=== PATIENT | male | born 1960 | race Caucasian/White ===

== ENCOUNTER 2021-02-24 17:25 | Inpatient (IN) | payer BC ==
[2021-02-24] MEDS ORDERED: Ondansetron 4 MG/2 ML SDV IVPUSH ONE (17:53)
[2021-02-24] MEDS ORDERED: HYDROmorphone 0.5 MG/0.5 ML Syringe IVPUSH ONE ×3 (17:53→19:49)
[2021-02-24] MEDS ORDERED: Sodium Chloride 0.9% 1,000 ML IV SCH (18:00)
--- NOTE | 2021-02-24 18:14 | EDM.PDOC ---
ED HPI GENERAL MEDICAL PROBLEM - General Chief Complaint: Chest Pain Stated Complaint: CHEST PAIN/STOMACH PAIN Time Seen by Provider: 02/24/21 18:00 Source of Information: Reports: Patient, Family History Limitations: Reports: No Limitations - History of Present Illness INITIAL COMMENTS - FREE TEXT/NARRATIVE: 60-year-old male with a past history of cholelithiasis, presents with right upper quadrant pain radiating to his back for the past 2 hours. Mild nausea but no vomiting, no fevers or chills, some pain does radiate up into the substernal area of the chest. He is very uncomfortable. No fevers or chills. No urinary symptoms. Onset: Sudden Duration: Hour(s): (2-1/2 hours ago) Location: Reports: Abdomen (Upper abdomen and right upper quadrant) Associated Symptoms: Reports: Chest Pain, Other (Mild nausea). Denies: Fever/Chills, Headaches, Shortness of Breath Epigastric Pain Score (Numeric/FACES): 10 - Related Data Allergies Allergy/AdvReac Type Severity Reaction Status Date / Time No Known Allergies Allergy Verified 02/24/21 18:06 Home Meds: Home Meds NK [No Known Home Meds] 02/24/21 [History] Past Medical History Oncologic (Cancer) History: Reports: Prostate - Past Surgical History Male Surgical History: Reports: Prostatectomy ED ROS GENERAL - Review of Systems Review Of Systems: See Below Constitutional: Reports: Malaise. Denies: Fever, Chills HEENT: Reports: No Symptoms Respiratory: Reports: No Symptoms Cardiovascular: Reports: Chest Pain. Denies: Palpitations GI/Abdominal: Reports: Abdominal Pain, Nausea. Denies: Diarrhea, Vomiting : Reports: No Symptoms Musculoskeletal: Reports: No Symptoms Skin: Reports: No Symptoms Neurological: Reports: No Symptoms Psychiatric: Reports: No Symptoms ED EXAM, GENERAL - Physical Exam Exam: See Below Exam Limited By: No Limitations General Appearance: Alert, Mild Distress, Other (Fairly uncomfortable, difficulty finding comfortable position) Eye Exam: Bilateral Eye: Normal Inspection (No jaundice) Head: Atraumatic Respiratory/Chest: No Respiratory Distress, Lungs Clear Cardiovascular: Regular Rate, Rhythm, No Murmur GI/Abdominal: Soft, Tender (Very tender to palpation across the upper abdomen, guarding in the right upper quadrant but no significant rebound) Extremities: Normal Inspection. No: Pedal Edema Neurological: Alert, Oriented Psychiatric: Anxious Skin Exam: Warm, Dry #1 Interpretation EKG Date: 02/24/21 Rhythm: NSR EKG Interpretation Comments: No comparisons available Course - Vital Signs Last Recorded V/S: Last Vital Signs Temp 97.0 F 02/24/21 17:38 Pulse 51 L 02/24/21 20:10 Resp 9 L 02/24/21 20:10 BP 138/59 L 02/24/21 20:10 Pulse Ox 96 02/24/21 20:10 - Orders/Labs/Meds Orders: Active Orders 24 hr Category Date Time Status Sodium Chloride 0.9% [Normal Saline] 1,000 ml Med 02/24/21 18:00 Active IV ASDIRECTED EKG 12 Lead [EK] Routine Ther 02/24/21 17:53 Ordered Medication Orders Diphenhydramine HCl (Diphenhydramine 25 Mg Cap) 25 mg PO Q4H PRN PRN Reason: Itching Diphenhydramine HCl (Diphenhydramine 50 Mg/Ml Sdv) 25 mg IVPUSH Q4H PRN PRN Reason: Itching Diphenhydramine HCl (Diphenhydramine 50 Mg/Ml Sdv) 50 mg IVPUSH Q4H PRN PRN Reason: Itching Fentanyl (Fentanyl 100 Mcg/2 Ml Sdv) 10 mcg IVPUSH Q1H PRN PRN Reason: Pain (mild 1-3) Fentanyl (Fentanyl 100 Mcg/2 Ml Sdv) 20 mcg IVPUSH Q1H PRN PRN Reason: Pain (moderate 4-6) Fentanyl (Fentanyl 100 Mcg/2 Ml Sdv) 30 mcg IVPUSH Q1H PRN PRN Reason: Pain (severe 7-10) Sodium Chloride (Normal Saline) 1,000 mls @ 500 mls/hr IV ASDIRECTED GINNY Last Admin: 02/24/21 18:12 Dose: 500 mls/hr Documented by: LALO Promethazine HCl 12.5 mg/ (Sodium Chloride) 50.5 mls @ 200 mls/hr IV Q8H PRN PRN Reason: Nausea/Vomiting Promethazine HCl 25 mg/ Sodium (Chloride) 51 mls @ 200 mls/hr IV Q8H PRN PRN Reason: Nausea/Vomiting Sodium Chloride (Normal Saline) 1,000 mls @ 125 mls/hr IV ASDIRECTED [facility] Cefazolin Sodium 2 gm/ Sodium (Chloride) 50 mls @ 100 mls/hr IV ASDIRECTED ONE Stop: 02/25/21 09:29 Metronidazole 500 mg/ Premix 100 mls @ 100 mls/hr IV ONETIME ONE Stop: 02/25/21 08:59 Morphine Sulfate (Morphine 4 Mg/Ml Syringe) 1 mg IVPUSH Q1H PRN PRN Reason: Pain (mild 1-3) Morphine Sulfate (Morphine 4 Mg/Ml Syringe) 2 mg IVPUSH Q1H PRN PRN Reason: Pain (moderate 4-6) Morphine Sulfate (Morphine 4 Mg/Ml Syringe) 3 mg IVPUSH Q1H PRN PRN Reason: Pain (severe 7-10) Ondansetron HCl (Ondansetron 4 Mg/2 Ml Sdv) 4 mg IVPUSH Q8H PRN PRN Reason: Nausea/Vomiting Scopolamine (Scopolamine 1.5 Mg Transdermal Patch) 1.5 mg TRDERM Q72H PRN PRN Reason: Nausea Labs: Laboratory Tests 02/24/21 02/24/21 02/24/21 Range/Units 18:02 18:02 20:39 WBC 8.5 (4.5-11.0) K/uL RBC 5.28 (4.30-5.90) M/uL Hgb 15.1 H (12.0-15.0) g/dL Hct 43.8 (40.0-54.0) % MCV 83 (80-98) fL MCH 29 (27-31) pg MCHC 35 (32-36) % Plt Count 242 (150-400) K/uL Neut % (Auto) 50.7 (36-66) % Lymph % (Auto) 32.8 (24-44) % [place] % (Auto) 9.6 H (2-6) % Eos % (Auto) 6.4 H (2-4) % Baso % (Auto) 0.5 (0-1) % Sodium 138 L (140-148) mmol/L Potassium 3.3 L (3.6-5.2) mmol/L Chloride 102 (100-108) mmol/L Carbon Dioxide 25 (21-32) mmol/L Anion Gap 14.3 H (5.0-14.0) mmol/L BUN 14 (7-18) mg/dL Creatinine 1.1 (0.8-1.3) mg/dL Est Cr Clr Drug Dosing 74.66 mL/min Estimated GFR (MDRD) > 60 (>60) Glucose 96 (74-106) mg/dL Calcium 8.5 (8.5-10.1) mg/dL Total Bilirubin 0.3 (0.2-1.0) mg/dL AST 20 (15-37) U/L ALT 40 (12-78) U/L Alkaline Phosphatase 62 (46-116) U/L Troponin I < 0.017 (0.000-0.056) ng/mL Total Protein 6.7 (6.4-8.2) g/dL Albumin 3.6 (3.4-5.0) g/dL Globulin 3.1 (2.3-3.5) g/dL Albumin/Globulin Ratio 1.2 (1.2-2.2) Lipase 100 (73-393) U/L SARS-CoV-2 RNA (BAKARI) Negative (NEGATIVE) Meds: Medications Generic Name Dose Route Start Last Admin Trade Name Freq PRN Reason Stop Dose Admin Diphenhydramine HCl 25 mg 02/24/21 21:22 Diphenhydramine 25 Mg Cap PO Q4H PRN Itching Diphenhydramine HCl 25 mg 02/24/21 21:22 Diphenhydramine 50 Mg/Ml Sdv IVPUSH Q4H PRN Itching Diphenhydramine HCl 50 mg 02/24/21 21:22 Diphenhydramine 50 Mg/Ml Sdv IVPUSH Q4H PRN Itching Fentanyl 10 mcg 02/24/21 21:22 Fentanyl 100 Mcg/2 Ml Sdv IVPUSH Q1H PRN Pain (mild 1-3) Fentanyl 20 mcg 02/24/21 21:22 Fentanyl 100 Mcg/2 Ml Sdv IVPUSH Q1H PRN Pain (moderate 4-6) Fentanyl 30 mcg 02/24/21 21:22 Fentanyl 100 Mcg/2 Ml Sdv IVPUSH Q1H PRN Pain (severe 7-10) Sodium Chloride 1,000 mls @ 500 mls/hr 02/24/21 18:00 02/24/21 18:12 Normal Saline IV 500 mls/hr ASDIRECTED GINNY Administration Promethazine HCl 12.5 mg/ 50.5 mls @ 200 mls/hr 02/24/21 21:22 Sodium Chloride IV Q8H PRN Nausea/Vomiting Promethazine HCl 25 mg/ Sodium 51 mls @ 200 mls/hr 02/24/21 21:22 Chloride IV Q8H PRN Nausea/Vomiting Sodium Chloride 1,000 mls @ 125 mls/hr 02/24/21 21:30 Normal Saline IV ASDIRECTED GINNY Cefazolin Sodium 2 gm/ Sodium 50 mls @ 100 mls/hr 02/25/21 09:00 Chloride IV 02/25/21 09:29 ASDIRECTED ONE Metronidazole 500 mg/ Premix 100 mls @ 100 mls/hr 02/25/21 08:00 IV 02/25/21 08:59 ONETIME ONE Morphine Sulfate 1 mg 02/24/21 21:22 Morphine 4 Mg/Ml Syringe IVPUSH Q1H PRN Pain (mild 1-3) Morphine Sulfate 2 mg 02/24/21 21:22 Morphine 4 Mg/Ml Syringe IVPUSH Q1H PRN Pain (moderate 4-6) Morphine Sulfate 3 mg 02/24/21 21:22 Morphine 4 Mg/Ml Syringe IVPUSH Q1H PRN Pain (severe 7-10) Ondansetron HCl 4 mg 02/24/21 21:22 Ondansetron 4 Mg/2 Ml Sdv IVPUSH Q8H PRN Nausea/Vomiting Scopolamine 1.5 mg 02/24/21 21:22 Scopolamine 1.5 Mg Transdermal Patch TRDERM Q72H PRN Nausea Discontinued Medications Generic Name Dose Route Start Last Admin Trade Name Freq PRN Reason Stop Dose Admin Fentanyl 50 mcg 02/24/21 19:00 02/24/21 19:51 Fentanyl 100 Mcg/2 Ml Sdv IVPUSH 02/24/21 19:01 Not Given ONETIME ONE Hydromorphone HCl 0.5 mg 02/24/21 17:53 02/24/21 18:01 Hydromorphone 0.5 Mg/0.5 Ml Syringe IVPUSH 02/24/21 17:54 0.5 mg ONETIME ONE Administration Hydromorphone HCl 0.5 mg 02/24/21 18:26 02/24/21 18:34 Hydromorphone 0.5 Mg/0.5 Ml Syringe IVPUSH 02/24/21 18:27 0.5 mg ONETIME ONE Administration Hydromorphone HCl 0.5 mg 02/24/21 19:49 02/24/21 19:54 Hydromorphone 0.5 Mg/0.5 Ml Syringe IVPUSH 02/24/21 19:50 0.5 mg ONETIME ONE Administration Ondansetron HCl 4 mg 02/24/21 17:53 02/24/21 18:03 Ondansetron 4 Mg/2 Ml Sdv IVPUSH 02/24/21 17:54 4 mg ONETIME ONE Administration - Re-Assessments/Exams Free Text/Narrative Re-Assessment/Exam: 02/24/21 18:16 EKG was done on arrival and showed no ST changes. IV was started and the patient was given 0.5 mg of IV Dilaudid and 4 mg IV Zofran. Bedside ultrasound showed a minimally distended gallbladder but what appeared to be a normal wall and no obvious stones, there was an irregularity near the neck of the gallbladder that I am unsure what the source is. CBC CMP lipase and troponin were obtained. 02/24/21 18:27 CBC returned normal, rest of labs are still pending. Initial medications were helpful but his pain started worsening so he was given a second 0.5 mg dose of IV Dilaudid. 02/24/21 18:36 Labs are all reassuring but pain is very persistent so formal gallbladder ultrasound was ordered. Troponin is 0. 02/24/21 20:30 Formal ultrasound did reveal a mixed echogenic clump of material in the neck of the gallbladder. Discussed with Dr. Yoder is this patient's pain is difficult to control. He accepted the admission and will prep for a cholecystectomy tomorrow. 02/24/21 21:47 IMPRESSION: Large nonmobile stone in the gallbladder neck with minimal wall thickening and positive sonographic Orourke sign suggestive of acute cholecystitis. Departure - Departure Time of Disposition: 21:20 Disposition: Home, Self-Care 01 Clinical Impression: Colic, biliary Cholelithiasis Qualifiers: Cholelithiasis location: gallbladder Cholecystitis presence: without cholecystitis Biliary obstruction: without biliary obstruction Qualified Code(s): K80.20 - Calculus of gallbladder without cholecystitis without obstruction - Discharge Information Sepsis Event Note (ED) - Focused Exam Vital Signs: Vital Signs Temp Pulse Resp BP Pulse Ox 02/24/21 20:10 51 L 9 L 138/59 L 96 02/24/21 18:02 54 L 11 L 143/73 H 100 02/24/21 17:38 97.0 F 49 L 11 L 167/81 H 99 02/24/21 17:33 97.0 F 49 L 11 L 167/81 H 99 - My Orders Last 24 Hours: My Active Orders 02/24/21 17:53 EKG 12 Lead [EK] Routine 02/24/21 18:00 Sodium Chloride 0.9% [Normal Saline] 1,000 ml IV ASDIRECTED - Assessment/Plan Last 24 Hours: My Active Orders 02/24/21 17:53 EKG 12 Lead [EK] Routine 02/24/21 18:00 Sodium Chloride 0.9% [Normal Saline] 1,000 ml IV ASDIRECTED
[2021-02-24] MEDS ORDERED: fentaNYL 100 MCG/2 ML SDV IVPUSH ONE (19:00)
--- NOTE | 2021-02-24 20:43 | CRLUS ---
For Patients: As a result of the Cures Act, medical imaging exams and procedure reports are released immediately into your electronic medical record. You may view this report before your referring provider. If you have questions, please contact your health care provider. INDICATION: Right upper quadrant abdominal pain. COMPARISON: None. TECHNIQUE: Real time mckeon scale imaging and color Doppler analysis was performed of the right upper quadrant. FINDINGS: Liver: The liver is normal in size measuring 15.2 cm in length. Normal echogenicity. No focal liver lesions. Gallbladder: The gallbladder is mildly distended. There is a large nonmobile shadowing stone within the gallbladder neck measuring 2.1 cm. Additional 3.1 cm non shadowing stone or sludge ball. Minimal wall thickening. No pericholecystic fluid. Positive sonographic Orourke sign. Bile ducts: No biliary dilation. The common bile duct measures 4 mm in diameter. Pancreas: Normal where seen. The tail is not well seen due to shadowing bowel gas. Right kidney: The right kidney measures 11.6 cm in length. No hydronephrosis, calculus, or mass. Vascular: The main portal vein is patent with normal hepatopetal flow. IMPRESSION: Large nonmobile stone in the gallbladder neck with minimal wall thickening and positive sonographic Orourke sign suggestive of acute cholecystitis. Dictated by Dian Patel MD @ 02/24/2021 8:41:20 PM (Electronically Signed)
[2021-02-24] MEDS ORDERED: Scopolamine 1.5 MG Transdermal Patch TRDERM PRN (21:22)
[2021-02-24] MEDS ORDERED: fentaNYL 100 MCG/2 ML SDV IVPUSH PRN ×3 (21:22)
[2021-02-24] MEDS ORDERED: Morphine 4 MG/ML Syringe IVPUSH PRN ×3 (21:22)
[2021-02-24] MEDS ORDERED: Promethazine 25 MG in Sodium Chloride 0.9% 50 ML IV PRN (21:22)
[2021-02-24] MEDS ORDERED: diphenhydrAMINE 50 MG/ML SDV IVPUSH PRN ×2 (21:22)
[2021-02-24] MEDS ORDERED: diphenhydrAMINE 25 MG Cap PO PRN (21:22)
[2021-02-24] MEDS ORDERED: Promethazine 12.5 MG in Sodium Chloride 0.9% 50 ML IV PRN (21:22)
[2021-02-24] MEDS ORDERED: Ondansetron 4 MG/2 ML SDV IVPUSH PRN (21:22)
[2021-02-24] MEDS: Sodium Chloride 0.9% 1,000 ML IV SCH (22:00)
[2021-02-25] MEDS: Sodium Chloride 0.9% 1,000 ML IV SCH (05:29)
[2021-02-25] MEDS ORDERED: Bupivacaine 0.5% 50 ML MDV ONE (07:01)
[2021-02-25] MEDS ORDERED: Lidocaine 1% with EPINEPHrine 1:100,000 50 ML MDV ONE (07:01)
[2021-02-25] MEDS ORDERED: fentaNYL 250 MCG/5 ML SDV ONE ×3 (07:18→11:00)
[2021-02-25] MEDS ORDERED: Dexamethasone 4 MG/ML SDV ONE (07:19)
[2021-02-25] MEDS ORDERED: Succinylcholine 200 MG/10 ML MDV ONE (07:19)
[2021-02-25] MEDS ORDERED: Glycopyrrolate 0.2 MG/ML 5 ML MDV ONE (07:19)
[2021-02-25] MEDS ORDERED: Neostigmine Methylsulfate 1 MG/ML 5 ML Syringe ONE (07:19)
[2021-02-25] MEDS ORDERED: Rocuronium 50 MG/5 ML Vial ONE (07:19)
[2021-02-25] MEDS ORDERED: Propofol 200 MG/20 ML SDV ONE (07:19)
[2021-02-25] MEDS ORDERED: Ondansetron 4 MG/2 ML SDV ONE (07:19)
[2021-02-25] MEDS ORDERED: metroNIDAZOLE/Normal Saline 500 MG in Premix Bag 1 BAG IV ONE (08:00)
[2021-02-25] MEDS ORDERED: Ropivacaine 44 ML, dexAMETHasone 8 MG, EPINEPHrine 0.4 MG, Sodium Chloride 0.9% 33.6 ML NERVRT SCH ×4 (08:15)
[2021-02-25] MEDS ORDERED: ceFAZolin 2 GM in Premix Bag 1 BAG IV ONE (08:45)
[2021-02-25] MEDS ORDERED: ceFAZolin 2 GM in Sodium Chloride 0.9% 50 ML IV ONE (09:00)
[2021-02-25] MEDS ORDERED: Lactated Ringers 1,000 ML ONE (09:40)
[2021-02-25] MEDS ORDERED: Zolpidem 5 MG Tab PO PRN (10:14)
[2021-02-25] MEDS ORDERED: Acetaminophen/HYDROcodone 325-5 MG Tab PO PRN (10:14)
[2021-02-25] MEDS ORDERED: hydrOXYzine HCL 100 MG/2 ML SDV IM PRN (10:14)
[2021-02-25] MEDS ORDERED: Docusate Sodium 100 MG Cap PO PRN (10:14)
[2021-02-25] MEDS ORDERED: Benzocaine/Cetylpyridinium/Menthol Lozenge MUCMEM PRN (10:14)
--- NOTE | 2021-02-25 12:16 | CONS ---
DATE OF SERVICE: 02/24/2021 REFERRING PHYSICIAN: CONSULTING PHYSICIAN: Paul Yoder MD REASON FOR CONSULTATION: Abdominal pain. CONSULTING PHYSICIAN: Valente Landry MD. HISTORY OF PRESENT ILLNESS: This 60-year-old male with ongoing history of cholelithiasis and probably cholecystitis. This has recently worsened over the last few hours. He does have some nausea, no vomiting, shortness of breath, or chest pain. Positive family history. Pain is described right now as 4 to 5/10 and stable. SOCIAL HISTORY: He does not smoke. FAMILY HISTORY: Positive as above for gallbladder disease. REVIEW OF SYSTEMS: GENERAL: Appropriate for condition. HEENT: No symptoms. RESPIRATORY: No symptoms. CARDIOVASCULAR: No chest pain. GI: No acholic stool. MUSCULOSKELETAL: No symptoms. SKIN: No symptoms. NEUROLOGICAL: No symptoms. PSYCH: No symptoms. PHYSICAL EXAMINATION: VITAL SIGNS: Temperature 97.7, blood pressure 136/64, pulse 54, respirations 16, 98% on room air. GENERAL: The patient is appropriate for condition. HEENT: Pupils are equal. NECK: Supple. LUNGS: Clear. CARDIOVASCULAR: Regular rhythm and rate. RESPIRATORY: Lungs are clear to auscultation bilaterally. ABDOMEN: Pain with palpation right upper quadrant. NEUROLOGICAL: Alert and oriented x3. PSYCH: No gross depression. LABORATORY RESULTS: Show a normal basic metabolic panel except for slightly low sodium and potassium. IMAGING: I did review this, which shows gallbladder cholelithiasis. ASSESSMENT AND PLAN: To the operating room for cholelithiasis, cholecystitis, for laparoscopic cholecystectomy with bilateral TAP, rectus sheath blocks, possible open procedure. We discussed risks, benefits, alternatives, and limitations including, but not limited to infection, bleeding, cystic duct leaks, hematoma, seroma, common bile duct injury, possibility of open surgery and other risks not listed here. Paul Yoder MD /[id number]
--- NOTE | 2021-02-27 12:47 | OR ---
DATE OF PROCEDURE: 02/25/2021 SURGEON: Paul Yoder MD PROCEDURE: Laparoscopic cholecystectomy. FINDINGS: 1. Significantly inflamed and ischemic-appearing gallbladder. 2. Cholelithiasis. COMPLICATIONS: None. CONTROLLER REPAIRER AND TESTER: None. ANESTHESIA: General. RISKS: Risks, benefits, alternatives, and limitations including, but not limited to infection, bleeding, cystic duct leaks, common bile duct injuries and other risks not listed here were explained to the patient and they wished to proceed. We also discussed the possibility of open surgery, hematoma, seroma, cystic duct leaks, common bile duct injuries and other risks not listed here. PROCEDURE IN DETAIL: The patient was placed in supine position. A supraumbilical curvilinear incision was made. A Veress needle was used to enter the abdomen without abnormality. Drop test was performed without abnormality. The abdomen subsequently insufflated. The Optiview trocar was introduced without abnormality. An additional 10 and two 5 mm ports were entered under direct visualization. The gallbladder was identified wrapped in omentum, which was bluntly dissected. The gallbladder itself was ischemic and/or inflamed with a significant red inflammatory process to this. This was needle decompressed with no leakage. This was also cultured. The gallbladder was retracted cephalad and the infundibulum retracted inferolaterally. Using blunt dissection, a "clear view" of the gallbladder was obtained with a single pulsatile structure entering the gallbladder and a single non-pulsatile structure entering the gallbladder. These were subsequently clipped x3 and transected. The remaining 1/3rd of the gallbladder was removed off the gallbladder bed without difficulty. This was delivered through the superior port without difficulty. A large stone was noted. The abdomen was re-insufflated. Electrocautery was used to address any remnant bleeding. The abdomen was irrigated with greater than 1 L of irrigation. No bile or stone spillage was noted during this procedure. Pressure dropped to 7. No bleeding was noted of the gallbladder fossa. The air was removed. Prior to this, the entry point was inspected for enterotomy, none was noted. The wounds were closed with 3-0 and 4=0 Vicryl in interrupted and running fashion. The patient tolerated the procedure well. Paul Yoder MD /[id number]
--- NOTE | 2021-02-27 12:52 | OR ---
DATE OF PROCEDURE: 02/25/2021 SURGEON: Paul Yoder MD PROCEDURE: 1. Transversus abdominis plane block bilaterally. 2. Rectus sheath blocks bilaterally. COMPLICATION: None. BAKERY MANAGER: None. RISKS: Risks, benefits, alternatives, and limitations including, but not limited to infection, bleeding, and injury to abdominal structures and other risks not listed here. PROCEDURE IN DETAIL: The patient was placed in supine position. The right transversus plane was identified first. This was performed using a 13 megahertz ultrasound probe. 20% solution was injected in the right and then repeated on the left side. The posterior aspects of the rectus muscles were identified and 20% solution was injected in both left and right sides respectively. During these 4 entries, at no point was the needle blindly advanced nor advanced without ultrasound guidance. All 4 procedures were performed in the same manner, same fashion, same technique in the same sequence using the same equipment. Paul Yoder MD /[id number]
== END 2021-02-25 15:15 | disposition home or self-care (01) | DRG 263 ==
LOC: JP.ED 17:25 → JP.MS 20:44
PROVIDERS: ADMIT Surgery; ATTEND Surgery
PROC: 0FT44ZZ Resection of Gallbladder, Percutaneous Endoscopic Approach (ICD-10-PCS; principal; 2021-02-25)
DX: K80.10 Calculus of gallbladder with chronic cholecystitis without obstruction (principal); Z90.79 Acquired absence of other genital organ(s); Z20.822 Contact with and (suspected) exposure to COVID-19
CPT/HCPCS: 36415; 76705; 80053; 83690; 84484; 85025; 87070; 87075; 87077; 87205; 93005; 96374; 96375; 96376; 99285-25; A9270-GY; J0171; J0330; J0690; J1100; J1170; J2270; J2405; J2704; J2710; J2795; J3010; J3490; J7030; J7120; U0002

== ENCOUNTER 2022-12-24 20:23 | Emergency (ER) | payer BC ==
[2022-12-24] MEDS ORDERED: Lidocaine 1% 5 ML VIAL INJECT ONE (21:10)
[2022-12-24] MEDS ORDERED: Diphtheria,Pertussis(Acell),Tetanus Vaccine 0.5 ML Syringe IM ONE (21:10)
== END 2022-12-24 21:35 | disposition home or self-care (01) ==
LOC: JP.ED 20:23
DX: S00.85XA Superficial foreign body of other part of head, initial encounter (principal); Z23 Encounter for immunization; W45.8XXA Other foreign body or object entering through skin, initial encounter
CPT/HCPCS: 90471; 90715; 99282-25